=== PATIENT | male | born 1960 | race Caucasian/White ===

== ENCOUNTER → 2016-12-18 | Outpatient (CLI) | payer BC ==
--- NOTE | 2016-12-18 12:57 | KCIC ---
MR of the right knee HISTORY: Knee pain, anterior and posterior, for about one month. Pushing injury. TECHNIQUE: Routine multiplanar sequences are obtained. FINDINGS: Abnormal signal within the posterior horn of the medial meniscus, with surface fibrillation compatible with a tear. No evidence of a lateral meniscal tear. Anterior and posterior cruciate ligaments are intact. Mild thickening and signal within the ACL compatible with degeneration. Posterior cruciate ligament is intact. Medial collateral ligament is intact. Iliotibial band unremarkable. Fibular collateral ligament, biceps femoris tendon and popliteus tendon are intact. Extensor mechanism is intact. Large joint effusion. No evidence of osteochondral loose body. Severe chondromalacia at the medial joint compartment. Full-thickness cartilage loss at the weightbearing medial femoral condyle with subjacent edema, measuring 20 mm AP by 16 mm wide. Mild subjacent bone marrow edema. Mild lateral compartment chondromalacia. Moderate chondromalacia at the patellofemoral joint. No bone lesion or acute fracture. Mild soft tissue edema or contusion around the knee. Trace Smith's cyst. Minimal fluid dissects distally from the cyst suggesting leakage or rupture. Mild edema in the subcutaneous tissues anterior to the patella. IMPRESSION: 1. Medial meniscal tear. 2. Primary osteoarthritis. Severe cartilage loss at the medial joint with a full-thickness chondral defect of the weightbearing medial femoral condyle. 3. Tiny leaking or ruptured Smith's cyst. Electronically signed by: Yusuf Foley MD (12/18/2016 12:54 PM)
--- NOTE | 2016-12-18 13:07 | KCIC ---
MR of the left knee HISTORY: Left knee pain for about one month. Anterior and posterior pain. TECHNIQUE: Routine multiplanar sequences are obtained. FINDINGS: No evidence of a medial meniscal tear. Minimal blunting of the free margin of the lateral meniscus of the body and posterior horn suspicious for a very small tear. Anterior and posterior cruciate ligament are intact. Medial collateral ligament is intact. Iliotibial band unremarkable. Fibular collateral ligament, biceps femoris tendon and popliteus tendon are intact. Extensor mechanism intact. Trace joint fluid. Chondromalacia at the medial joint, severe at the anterior weightbearing aspect. Mild chondromalacia at the lateral joint. [id number] patellofemoral joint chondromalacia. No bone lesion or acute fracture. No significant Smith's cyst. IMPRESSION: 1. Possible very mild small lateral meniscal tear 2. Primary osteoarthritis. Electronically signed by: Yusuf Foley MD (12/18/2016 1:03 PM)
== END | disposition home or self-care (01) ==
LOC: KCIC MRI 08:49
PROVIDERS: ATTEND Anesthesiology
DX: S83.241A Other tear of medial meniscus, current injury, right knee, initial encounter (principal); S80.01XA Contusion of right knee, initial encounter; M17.0 Bilateral primary osteoarthritis of knee; M94.261 Chondromalacia, right knee; M94.262 Chondromalacia, left knee; M71.21 Synovial cyst of popliteal space [Baker], right knee; M25.461 Effusion, right knee; X58.XXXA Exposure to other specified factors, initial encounter; Y99.8 Other external cause status; Y92.89 Other specified places as the place of occurrence of the external cause; Y93.89 Activity, other specified
CPT/HCPCS: 73721